=== PATIENT | male | born 1950 | race Two or more races ===

== ENCOUNTER 2024-04-12 11:28 | Inpatient (IN) | payer OTHER ==
[~2024-04-12] VITALS: Ht 177.8 cm; Wt 81.6 kg
[2024-04-12] MEDS ORDERED: FENOFIBRIC ACI135 MG (11:47)
[2024-04-12] MEDS ORDERED: IRO-PLEX LIQUI120 ML PO (11:47)
[2024-04-12] MEDS ORDERED: AVAPRO75 MG PO (11:48)
[2024-04-12] MEDS ORDERED: TIROSINT75 MCG PO (11:48)
--- NOTE | 2024-04-12 11:48 | NUR ---
SE RECIBE PTE ALERTA Y ORIENTADA X3 EL MISMO REFIERE DEBILIDAD Y ANEMIA DE LA CUAL EDWARDS PADECIDO DESDE HACE VARIOS MESES. SE REALIZAN VITALES Y SE REALIZA EKG Y SE PRESENTA A DR JARRETT. SE ACOMODA PACIENTE EN GORAN.
[2024-04-12] MEDS ORDERED: 0.9 % SODIUM CHLORIDE 1,000 ML IV STA (13:30)
--- NOTE | 2024-04-12 13:53 | NUR ---
SE EDUCA A PTE SOBRE TX A RECIBIR EN EL AREA EL MISMO REFIERE ENTENDER. SE REALIZAN MUESTRAS MIKAELA ORDEN MEDICA Y SE CANALIZA PTE [place] IVLFUIDS. SE EDUCA AL MISMO SOBRE CONTRASTE A OSORIO Y REFIERE ENTENDER. SE SABIHA PACIENTE EN CAMA MIKAELA ORDEN MEDICA.
[2024-04-12 14:52] LABS: ALBUMIN 2.9 gm/dL (3.4-5.0); BILIRUBIN TOTAL 0.48 mg/dL (0.3-1.2); BILIRUBIN,CONJUGATED 0.23 mg/dL (0.0-0.2); BILIRUBIN,UNCONJUGATED 0.25 mg/dL (0.0-0.6); CALCIUM 8.4 mg/dL (8.5-10.1); CREATININE SERUM 1.16 mg/dL (0.70-1.30); GFR 61.54; GLOBULINA 3.3 G/DL (2.4-3.5); POTASSIUM 4.02 mEq/L (3.5-5.1); TOTAL PROTEIN 6.2 gm/dL (6.4-8.2)
[2024-04-12 15:33] LABS: MEAN CORPUSCULAR HGB CONC 30.1 g/dl (32.0-36.0); PLATELET COUNT 327 K/uL (150-450); RED BLOOD COUNT 1.45 M/uL (4.00-6.00); RED CELL DISTRIBUTION WIDTH 19.6 % (11.5-14.5)
[2024-04-12 15:34] LABS: MEAN CELL VOLUME 61.2 fL (80.0-100.00); MEAN CORPUSCULAR HEMOGLOBIN 18.6 pg (27.00-32.0)
[2024-04-12 15:37] LABS: HEMATOCRIT 8.9 % (39.0-48.0); HEMOGLOBIN 2.7 g/dL (13-16.00)
[2024-04-12 16:29] LABS: PROTHROMBIN TIME > 90.0 SECONDS (9.0-11.5)
[2024-04-12 16:30] LABS: PARTIAL THROMBOPLASTIN TIME 65.4 SECONDS (22.0-34.0)
[2024-04-12] MEDS ORDERED: PANTOPRAZOLE SODIUM 40 MG/VIAL VIAL IV SCH (18:10)
[2024-04-12] MEDS ORDERED: ACETAMINOPHEN 500 MG GEL..CAP PO PRN (18:15)
[2024-04-12] MEDS ORDERED: ONDANSETRON HCL 4 MG in 0.9 % SODIUM CHLORIDE 50 ML IV PRN (18:15)
[2024-04-12] MEDS ORDERED: 0.9 % SODIUM CHLORIDE 1,000 ML IV SCH (18:15)
[2024-04-12] MEDS ORDERED: PHYTONADIONE 10 MG/ML AMPUL IV ONE (18:30)
[2024-04-12 21:13] LABS: PH,URINE 5.5 (5.0-8.0); URINE APPEARANCE Clear; URINE BILIRRUBIN Negative (NEGATIVE); URINE BLOOD Negative; URINE COLOR Yellow; URINE GLUCOSE Negative (NEGATIVE); URINE LEUKOCYTE Negative; URINE NITRATE Negative; URINE PROTEIN Negative (NEGATIVE); URINE UROBILINOGEN 0.2 E.U./dl
[2024-04-12 21:16] LABS: URINE BACTERIA 31.4 uL (0.0-1933); URINE WBC 1.8 uL (0.0-23.2)
[2024-04-13 04:34] LABS: INR 1.84
[2024-04-13 04:38] LABS: PROTHROMBIN TIME 18.5 SECONDS (9.0-11.5)
[2024-04-13] MEDS ORDERED: LEVOTHYROXINE SODIUM 75 MCG TABLET PO SCH (06:00)
[2024-04-13] MEDS ORDERED: IRON FUM,PS/FOLIC/BCOMP,C NO.9 1 CAP CAPSULE PO SCH (09:00)
[2024-04-13] MEDS ORDERED: IRBESARTAN 75 MG TABLET PO SCH (09:00)
[2024-04-14 21:26] LABS: HEMATOCRIT 24.6 % (39.0-48.0); MEAN CELL VOLUME 77.6 fL (80.0-100.00); PLATELET COUNT 249 K/uL (150-450); RED BLOOD COUNT 3.17 M/uL (4.00-6.00)
[2024-04-14 21:27] LABS: HEMOGLOBIN 8.4 g/dL (13-16.00); MEAN CORPUSCULAR HEMOGLOBIN 26.4 pg (27.00-32.0); RED CELL DISTRIBUTION WIDTH 25.9 % (11.5-14.5)
[2024-04-14 21:37] LABS: INR 1.12; PARTIAL THROMBOPLASTIN TIME 27.7 SECONDS (22.0-34.0); PROTHROMBIN TIME 11.7 SECONDS (9.0-11.5)
[2024-04-16 11:49] LABS: HEMATOCRIT 31.1 % (39.0-48.0); HEMOGLOBIN 10.1 g/dL (13-16.00); MEAN CORPUSCULAR HEMOGLOBIN 26.4 pg (27.00-32.0); MEAN CORPUSCULAR HGB CONC 32.6 g/dl (32.0-36.0); PLATELET COUNT 252 K/uL (150-450); RED BLOOD COUNT 3.85 M/uL (4.00-6.00); RED CELL DISTRIBUTION WIDTH 25.3 % (11.5-14.5)
[2024-04-16] MEDS ORDERED: PEG3350/SOD SULF,BICARB,CL/KCL 4,000 ML GALLON PO NR (15:15)
[2024-04-16] MEDS ORDERED: FentaNYL CITRATE/PF 50MCG/ML 2ML VIAL IJ ONE (21:00)
[2024-04-16] MEDS ORDERED: MIDAZOLAM HCL 2 MG/2 ML VIAL IV ONE (21:00)
[2024-04-17] MEDS ORDERED: DIPHENHYDRAMINE HCL 50 MG/ML VIAL 1ML IV ONE (08:00)
[2024-04-17] MEDS ORDERED: fentaNYL CITRATE 50 MCG/ML AMPUL IV ONE (08:00)
[2024-04-17] MEDS ORDERED: MIDAZOLAM HCL 2 MG/2 ML VIAL IV ONE (08:00)
[2024-04-20 06:39] LABS: HEMATOCRIT 29.2 % (39.0-48.0); HEMOGLOBIN 9.8 g/dL (13-16.00); MEAN CELL VOLUME 81.4 fL (80.0-100.00); MEAN CORPUSCULAR HEMOGLOBIN 27.3 pg (27.00-32.0); MEAN CORPUSCULAR HGB CONC 33.5 g/dl (32.0-36.0); PLATELET COUNT 217 K/uL (150-450); RED BLOOD COUNT 3.59 M/uL (4.00-6.00)
[2024-04-20 06:41] LABS: RED CELL DISTRIBUTION WIDTH 25.6 % (11.5-14.5)
[2024-04-20 07:05] LABS: CALCIUM 8.6 mg/dL (8.5-10.1); CREATININE SERUM 0.74 mg/dL (0.70-1.30); GFR 103.39; POTASSIUM 3.74 mEq/L (3.5-5.1)
== END 2024-04-20 12:04 | disposition home or self-care (01) | DRG 812 ==
LOC: ER 11:29 → ICU-2 19:20 → ICU 19:20 → MEDJ 19:20 → ICU 04-14 03:47 → MEDJ 04-15 02:52
PROVIDERS: General Practice; Internal Medicine; Internal Medicine Hematology & Oncology; ADMIT Internal Medicine; ATTEND Internal Medicine
PROC: BW21ZZZ Computerized Tomography (CT Scan) of Abdomen and Pelvis (ICD-10-PCS; 2024-04-12)
PROC: 30233N1 Transfusion of Nonautologous Red Blood Cells into Peripheral Vein, Percutaneous Approach (ICD-10-PCS; 2024-04-12)
PROC: 4A12X4Z Monitoring of Cardiac Electrical Activity, External Approach (ICD-10-PCS; 2024-04-15)
PROC: 0FB03ZX Excision of Liver, Percutaneous Approach, Diagnostic (ICD-10-PCS; principal; 2024-04-16)
PROC: BF25ZZZ Computerized Tomography (CT Scan) of Liver (ICD-10-PCS; 2024-04-16)
PROC: 0DBK8ZZ Excision of Ascending Colon, Via Natural or Artificial Opening Endoscopic (ICD-10-PCS; 2024-04-16)
PROC: 0DBH8ZZ Excision of Cecum, Via Natural or Artificial Opening Endoscopic (ICD-10-PCS; 2024-04-17)
DX: D50.0 Iron deficiency anemia secondary to blood loss (chronic) (principal); C78.7 Secondary malignant neoplasm of liver and intrahepatic bile duct; K92.2 Gastrointestinal hemorrhage, unspecified; C18.0 Malignant neoplasm of cecum; E03.8 Other specified hypothyroidism; I10 Essential (primary) hypertension

== ENCOUNTER 2024-05-27 07:00 | Outpatient (CLI) | payer OTHER ==
[~2024-05-27 07:00] MED LIST: AVAPRO75 MG PO; FENOFIBRIC ACI135 MG; IRO-PLEX LIQUI120 ML PO; TIROSINT75 MCG PO
[2024-05-27 11:47] LABS: PH,URINE 5.5 (5.0-8.0); URINE APPEARANCE Clear; URINE BILIRRUBIN Negative (NEGATIVE); URINE BLOOD Negative; URINE COLOR Dark Yellow; URINE GLUCOSE Negative (NEGATIVE); URINE KETONE Negative (NEGATIVE); URINE LEUKOCYTE Trace; URINE NITRATE Negative; URINE PROTEIN Negative (NEGATIVE)
[2024-05-27 11:50] LABS: URINE EPITHELIAL CELLS 4.4 uL (0.0-38.8)
[2024-05-27 11:52] LABS: URINE BACTERIA 3.7 uL (0.0-1933); URINE CAST 1.06 uL (0.0-1.40); URINE RBC 1.3 uL (0.0-20.8)
[2024-05-27 12:10] LABS: HEMATOCRIT 25.5 % (39.0-48.0); HEMOGLOBIN 8.5 g/dL (13-16.00); MEAN CELL VOLUME 78.3 fL (80.0-100.00); MEAN CORPUSCULAR HGB CONC 33.3 g/dl (32.0-36.0); PLATELET COUNT 373 K/uL (150-450); RED BLOOD COUNT 3.26 M/uL (4.00-6.00); RED CELL DISTRIBUTION WIDTH 20.8 % (11.5-14.5)
[2024-05-27 12:31] LABS: ALBUMIN 3.4 gm/dL (3.4-5.0); BILIRUBIN TOTAL 1.39 mg/dL (0.3-1.2); CALCIUM 9.5 mg/dL (8.5-10.1); CREATININE SERUM 1.02 mg/dL (0.70-1.30); GFR 71.39; INR 2.35; POTASSIUM 4.37 mEq/L (3.5-5.1); TOTAL PROTEIN 7.4 gm/dL (6.4-8.2)
[2024-05-27 12:41] LABS: PARTIAL THROMBOPLASTIN TIME 37.9 SECONDS (22.0-34.0); PROTHROMBIN TIME 23.2 SECONDS (9.0-11.5)
== END 2024-05-27 07:05 | disposition home or self-care (01) ==
LOC: RAD 07:00 → ADM 09:15 → CIR.AMB 06-01 09:15 → EDSTATUS 06-01 09:15 → CIR.AMB 06-01 14:30
PROVIDERS: ATTEND Surgery
DX: C18.0 Malignant neoplasm of cecum (principal); C78.7 Secondary malignant neoplasm of liver and intrahepatic bile duct; I10 Essential (primary) hypertension

== ENCOUNTER 2024-06-01 07:53 | Outpatient (CLI) | payer OTHER ==
[2024-06-01 09:00] LABS: INR 2.68
[2024-06-01 09:24] LABS: PARTIAL THROMBOPLASTIN TIME 38.6 SECONDS (22.0-34.0); PROTHROMBIN TIME 26.2 SECONDS (9.0-11.5)
== END 2024-06-01 07:59 | disposition home or self-care (01) ==
LOC: LAB 07:53
DX: D68.9 Coagulation defect, unspecified (principal)

== ENCOUNTER 2024-07-04 08:53 | Inpatient (IN) | payer OTHER ==
[~2024-07-04] VITALS: Ht 170.2 cm; Wt 72.6 kg
[2024-07-04] MEDS ORDERED: AVALIDE 300-121 EACH (09:28)
[2024-07-04] MEDS ORDERED: FENOFIBRIC ACI105 MG (09:28)
--- NOTE | 2024-07-04 09:29 | NUR ---
PACIENTE ALERTA Y ORIENTADO X3 QUIEN ACUDE A ER PARA SER ADMITIDO POR DR. PARKER LLAMAS COLORECTAL DEBIDO A BAJOS NIVELES DE HEMOGLOBINA.
[2024-07-04] MEDS ORDERED: RINGERS SOLUTION,LACTATED 1,000 ML IV SCH (10:15)
[2024-07-04] MEDS ORDERED: FUROsemide 20 MG/2 ML VIAL IV SCH (10:15)
[2024-07-04] MEDS ORDERED: DIPHENHYDRAMINE HCL 50 MG/ML VIAL 1ML IV ONE (10:15)
[2024-07-04 10:32] LABS: MEAN CELL VOLUME 80.7 fL (80.0-100.00); PLATELET COUNT 341 K/uL (150-450); RED BLOOD COUNT 2.81 M/uL (4.00-6.00); RED CELL DISTRIBUTION WIDTH 20.9 % (11.5-14.5)
[2024-07-04 10:33] LABS: HEMOGLOBIN 7.5 g/dL (13-16.00); MEAN CORPUSCULAR HEMOGLOBIN 26.6 pg (27.00-32.0)
[2024-07-04 10:34] LABS: HEMATOCRIT 22.7 % (39.0-48.0)
[2024-07-04] MEDS ORDERED: DIPHENHYDRAMINE HCL 50 MG/ML VIAL 1ML ONE (10:45)
[2024-07-04 10:51] LABS: URINE APPEARANCE Clear; URINE BILIRRUBIN Small (NEGATIVE); URINE BLOOD Negative; URINE COLOR Dark Yellow; URINE GLUCOSE Negative (NEGATIVE); URINE KETONE Trace (NEGATIVE); URINE LEUKOCYTE Trace; URINE NITRATE Negative; URINE PROTEIN Trace (NEGATIVE)
[2024-07-04 10:52] LABS: URINE BACTERIA 17.6 uL (0.0-1933); URINE CAST 2.59 uL (0.0-1.40); URINE EPITHELIAL CELLS 15.1 uL (0.0-38.8); URINE RBC 4.7 uL (0.0-20.8); URINE WBC 4.7 uL (0.0-23.2)
[2024-07-04 10:55] LABS: ALBUMIN 2.5 gm/dL (3.4-5.0); BILIRUBIN TOTAL 2.4 mg/dL (0.3-1.2); CALCIUM 9.1 mg/dL (8.5-10.1); CREATININE SERUM 0.93 mg/dL (0.70-1.30); GFR 79.42; GLOBULINA 4.2 G/DL (2.4-3.5); POTASSIUM 4.51 mEq/L (3.5-5.1); TOTAL PROTEIN 6.7 gm/dL (6.4-8.2)
[2024-07-04 11:07] LABS: INR 2.29
[2024-07-04 11:10] LABS: PARTIAL THROMBOPLASTIN TIME 38.2 SECONDS (22.0-34.0); PROTHROMBIN TIME 23.5 SECONDS (9.0-11.5)
[2024-07-04 11:45] VITALS: BP 119/71; O2SAT 98
[2024-07-04 16:00] VITALS: BP 116/70; O2SAT 97
[2024-07-04] MEDS ORDERED: Cyanocobalamin/Mecobalamin 1 TAB.SL SL SCH (17:00)
[2024-07-04] MEDS ORDERED: SOD FERRIC GLUC COMPLX/SUCROSE 62.5 MG in 0.9 % SODIUM CHLORIDE 50 ML IV SCH (17:00)
[2024-07-04] MEDS ORDERED: FOLIC ACID 1 MG TABLET PO SCH (17:00)
[2024-07-04] MEDS ORDERED: FAMOTIDINE/PF 20 MG/2 ML VIAL IV SCH (21:00)
[2024-07-05 00:42] VITALS: BP 127/72; O2SAT 98
[2024-07-05] MEDS ORDERED: LEVOTHYROXINE SODIUM 25 MCG TABLET PO SCH (06:00)
[2024-07-05] MEDS ORDERED: IRBESARTAN 300 MG TABLET PO SCH (09:00)
[2024-07-05 09:26] VITALS: BP 151/87; O2SAT 97
[2024-07-05 09:47] LABS: HEMATOCRIT 31.5 % (39.0-48.0); HEMOGLOBIN 10.6 g/dL (13-16.00); MEAN CELL VOLUME 82.1 fL (80.0-100.00); MEAN CORPUSCULAR HEMOGLOBIN 27.7 pg (27.00-32.0); MEAN CORPUSCULAR HGB CONC 33.7 g/dl (32.0-36.0); PLATELET COUNT 362 K/uL (150-450); RED BLOOD COUNT 3.84 M/uL (4.00-6.00); RED CELL DISTRIBUTION WIDTH 19.4 % (11.5-14.5)
[2024-07-05 09:48] LABS: ALBUMIN 2.7 gm/dL (3.4-5.0); BILIRUBIN TOTAL 3.1 mg/dL (0.3-1.2); CALCIUM 9.2 mg/dL (8.5-10.1); CREATININE SERUM 0.96 mg/dL (0.70-1.30); GFR 76.57; GLOBULINA 3.9 G/DL (2.4-3.5); POTASSIUM 4.75 mEq/L (3.5-5.1); TOTAL PROTEIN 6.6 gm/dL (6.4-8.2)
[2024-07-05 10:03] LABS: INR 2.79
[2024-07-05 10:08] LABS: PARTIAL THROMBOPLASTIN TIME 40.7 SECONDS (22.0-34.0); PROTHROMBIN TIME 28.2 SECONDS (9.0-11.5)
[2024-07-05] MEDS ORDERED: PHYTONADIONE 10 MG/ML AMPUL IM STA (10:13)
[2024-07-05 17:10] VITALS: BP 120/70; O2SAT 99
[2024-07-05 17:26] LABS: HEMATOCRIT 27.6 % (39.0-48.0); HEMOGLOBIN 9.4 g/dL (13-16.00); MEAN CELL VOLUME 80.2 fL (80.0-100.00); MEAN CORPUSCULAR HEMOGLOBIN 27.3 pg (27.00-32.0); MEAN CORPUSCULAR HGB CONC 34.1 g/dl (32.0-36.0); PLATELET COUNT 305 K/uL (150-450); RED BLOOD COUNT 3.45 M/uL (4.00-6.00); RED CELL DISTRIBUTION WIDTH 19.7 % (11.5-14.5)
[2024-07-05 17:53] LABS: INR 2.08
[2024-07-05 18:05] LABS: PARTIAL THROMBOPLASTIN TIME 42.2 SECONDS (22.0-34.0); PROTHROMBIN TIME 21.5 SECONDS (9.0-11.5)
[2024-07-06] VITALS: BP 130/71; O2SAT 96
[2024-07-06 08:00] VITALS: BP 128/68; O2SAT 96
[2024-07-06 15:28] LABS: INR 1.34; PARTIAL THROMBOPLASTIN TIME 34.7 SECONDS (22.0-34.0); PROTHROMBIN TIME 14.3 SECONDS (9.0-11.5)
[2024-07-06 16:00] VITALS: BP 1361/80; O2SAT 96
[2024-07-07 02:20] VITALS: BP 138/73; O2SAT 99
[2024-07-07 09:06] VITALS: BP 117/58; O2SAT 99
[2024-07-07] MEDS ORDERED: PHYTONADIONE 10 MG/ML AMPUL IV NR (10:00)
[2024-07-07 10:32] LABS: INR 1.29; PARTIAL THROMBOPLASTIN TIME 34.4 SECONDS (22.0-34.0); PROTHROMBIN TIME 13.8 SECONDS (9.0-11.5)
[2024-07-07 18:06] VITALS: BP 116/67; O2SAT 98
[2024-07-08 01:03] VITALS: BP 142/89; O2SAT 100
[2024-07-08] MEDS ORDERED: PHYTONADIONE 10 MG/ML AMPUL IV SCH (09:00)
[2024-07-08 10:23] VITALS: BP 113/64; O2SAT 99
[2024-07-08 16:54] VITALS: BP 127/76; O2SAT 98
[2024-07-09 00:56] VITALS: BP 117/67; O2SAT 100
[2024-07-09 08:00] VITALS: BP 114/64; O2SAT 98
[2024-07-09] MEDS ORDERED: LIDOCAINE HCL 1%/EPINEPHRINE 20ML VIAL IJ ONE (12:00)
[2024-07-09] MEDS ORDERED: HEPARIN SODIUM,PORCINE 500 UNITS/5 ML VIAL IV ONE (12:00)
[2024-07-09] MEDS ORDERED: BUPIVACAINE HCL/MPF 0.5% 30ML VIAL ONE (12:00)
[2024-07-09] MEDS ORDERED: MORPHINE SULFATE 4 MG/ML CARTRIDGE IV PRN (12:15)
[2024-07-09] MEDS ORDERED: ONDANSETRON HCL 2 MG/ML VIAL IV PRN (12:15)
[2024-07-09] MEDS ORDERED: DEXTROSE 50 % IN WATER 0.5 G/ML DISP.SYRIN IV PRN (12:15)
[2024-07-09] MEDS ORDERED: OxyCODONE HCL 5 MG TABLET (ROXICODONE) PO PRN (12:15)
[2024-07-09] MEDS ORDERED: HYOSCYAMINE SULFATE 0.125 MG TAB.SUBL SL SCH (13:00)
[2024-07-09] MEDS ORDERED: ACETAMINOPHEN 500 MG GEL..CAP PO SCH (14:00)
[2024-07-09] MEDS ORDERED: ENALAPRILAT DIHYDRATE 1.25 MG/ML VIAL IV ONE (14:08)
[2024-07-09] MEDS ORDERED: POLYETHYLENE GLYCOL 3350 17 GM BLIST.PACK PO SCH (17:00)
[2024-07-09] MEDS ORDERED: FAMOTIDINE/PF 20 MG/2 ML VIAL IV PUSH SCH (21:00)
[2024-07-10] VITALS: BP 120/65; O2SAT 93
[2024-07-10] MEDS ORDERED: PEPCID AC20 MG PO (08:05)
[2024-07-10] MEDS ORDERED: TRAM1TAB98 PO (08:06)
[2024-07-10] MEDS ORDERED: ENOXAPARIN SODIUM 40 MG/0.4 ML SYRINGE SUBCUTANEO SCH (17:00)
[2024-07-11] MEDS ORDERED: ENOXAPARIN SODIUM 40 MG/0.4 ML SYRINGE SUBCUTANEO SCH (09:00)
== END 2024-07-10 09:25 | disposition home or self-care (01) | DRG 357 ==
LOC: ER 08:54 → SURH 10:32
PROVIDERS: General Practice; Surgery; ADMIT Surgery; ATTEND Surgery
PROC: 30233N1 Transfusion of Nonautologous Red Blood Cells into Peripheral Vein, Percutaneous Approach (ICD-10-PCS; 2024-07-04)
PROC: 30233K1 Transfusion of Nonautologous Frozen Plasma into Peripheral Vein, Percutaneous Approach (ICD-10-PCS; 2024-07-05)
PROC: 05H633Z Insertion of Infusion Device into Left Subclavian Vein, Percutaneous Approach (ICD-10-PCS; 2024-07-09)
PROC: 0JH60WZ Insertion of Totally Implantable Vascular Access Device into Chest Subcutaneous Tissue and Fascia, Open Approach (ICD-10-PCS; principal; 2024-07-09 14:30)
DX: C18.0 Malignant neoplasm of cecum (principal); C78.7 Secondary malignant neoplasm of liver and intrahepatic bile duct; D64.89 Other specified anemias; D63.0 Anemia in neoplastic disease; E03.9 Hypothyroidism, unspecified; E78.5 Hyperlipidemia, unspecified; Z79.01 Long term (current) use of anticoagulants

== ENCOUNTER 2024-07-27 09:54 | Inpatient (IN) | payer OTHER ==
[~2024-07-27] VITALS: Ht 170.2 cm; Wt 67.8 kg
[~2024-07-27 09:54] MED LIST changes: +AVALIDE 300-121 EACH; +FENOFIBRIC ACI105 MG; +PEPCID AC20 MG PO; +TRAM1TAB98 PO
[2024-07-27] MEDS ORDERED: 0.9 % SODIUM CHLORIDE 1,000 ML IV ONE (11:00)
[2024-07-27 11:10] LABS: ABG PH 7.314 (7.35-7.45); BASE EXCESS -15.1 mmol/l; BICARBONATE 8.2 mmol/l (23-25); SaO2 97.4 %; Tco2 8.7 mmol/l
[2024-07-27 11:25] LABS: ABG pCO2 16.6 mmHg (35-45); allen test SATISFACTORY; o2 32 %; puncture site RADIAL RIGHT
[2024-07-27 11:26] LABS: HEMATOCRIT 26.3 % (39.0-48.0); MEAN CELL VOLUME 86.2 fL (80.0-100.00); MEAN CORPUSCULAR HGB CONC 32.3 g/dl (32.0-36.0); RED BLOOD COUNT 3.06 M/uL (4.00-6.00); RED CELL DISTRIBUTION WIDTH 19.2 % (11.5-14.5)
[2024-07-27 11:27] LABS: HEMOGLOBIN 8.5 g/dL (13-16.00); MEAN CORPUSCULAR HEMOGLOBIN 27.7 pg (27.00-32.0); PLATELET COUNT 99 K/uL (150-450)
[2024-07-27 11:50] LABS: INR 1.96
[2024-07-27 11:52] LABS: ALBUMIN 1.3 gm/dL (3.4-5.0); CALCIUM 7.6 mg/dL (8.5-10.1); GLOBULINA 3.7 G/DL (2.4-3.5)
[2024-07-27 11:54] VITALS: O2SAT 93
[2024-07-27 12:04] LABS: PARTIAL THROMBOPLASTIN TIME 42.6 SECONDS (22.0-34.0); PROTHROMBIN TIME 20.3 SECONDS (9.0-11.5)
[2024-07-27] MEDS ORDERED: PIPERACILLIN/TAZOBACTAM SODIUM 4.5 GM VIAL IV SCH (12:08)
[2024-07-27 12:09] LABS: URINE APPEARANCE Cloudy; URINE BILIRRUBIN Large (NEGATIVE); URINE BLOOD Negative; URINE COLOR Dark Yellow; URINE GLUCOSE Negative (NEGATIVE); URINE KETONE Negative (NEGATIVE); URINE LEUKOCYTE Moderate; URINE NITRATE Negative; URINE PROTEIN 30 (NEGATIVE)
[2024-07-27 12:13] LABS: URINE EPITHELIAL CELLS 68.1 uL (0.0-38.8); URINE RBC 18.1 uL (0.0-20.8); URINE WBC 171.1 uL (0.0-23.2)
[2024-07-27 12:15] VITALS: BP 80/62
[2024-07-27] MEDS ORDERED: FUROsemide 20 MG/2 ML VIAL IV ONE (12:15)
[2024-07-27 12:18] LABS: GFR 11.59
[2024-07-27 12:19] LABS: BILIRUBIN,UNCONJUGATED 3.45 mg/dL (0.0-0.6)
[2024-07-27 12:20] LABS: CREATININE SERUM 4.93 mg/dL (0.70-1.30)
[2024-07-27 12:22] LABS: URINE BACTERIA > 9821.5 uL (0.0-1933); URINE CAST 0.76 uL (0.0-1.40)
[2024-07-27 12:22] LABS: BILIRUBIN TOTAL 20.79 mg/dL (0.3-1.2); BILIRUBIN,CONJUGATED 17.34 mg/dL (0.0-0.2); POTASSIUM 7.32 mEq/L (3.5-5.1)
[2024-07-27] MEDS ORDERED: NOREPINEPHRINE BITARTRATE 1 MG/ML AMPUL IV SCH (13:00)
[2024-07-27] MEDS ORDERED: SODIUM POLYSTYRENE SULFONATE 30G/8 TSP PO SCH (13:00)
[2024-07-27] MEDS ORDERED: NOREPINEPHRINE BITARTRATE 8 MG in DEXTROSE 5 % IN WATER 250 ML IV SCH (13:15)
[2024-07-27] MEDS ORDERED: FUROsemide 20 MG/2 ML VIAL IV SCH (14:13)
[2024-07-28] MEDS ORDERED: SODIUM POLYSTYRENE SULFONATE 15 G/4 TSP TSP PO SCH (09:00)
== END 2024-07-27 15:00 | disposition expired | DRG 374 ==
LOC: ER 09:56 → ICU-2 14:43
PROVIDERS: General Practice; ADMIT Internal Medicine; ATTEND Internal Medicine
DX: C18.0 Malignant neoplasm of cecum (principal); R65.11 Systemic inflammatory response syndrome (SIRS) of non-infectious origin with acute organ dysfunction; C78.7 Secondary malignant neoplasm of liver and intrahepatic bile duct; N17.9 Acute kidney failure, unspecified; D63.0 Anemia in neoplastic disease; D64.81 Anemia due to antineoplastic chemotherapy; T45.1X5A Adverse effect of antineoplastic and immunosuppressive drugs, initial encounter; I46.9 Cardiac arrest, cause unspecified; I95.89 Other hypotension; E87.5 Hyperkalemia; I50.9 Heart failure, unspecified